=== PATIENT | male | born 1980 | race Asian ===

== ENCOUNTER 2021-11-22 06:30 | Day surgery (SDC) | payer OTHER ==
[~2021-11-22] VITALS: Ht 167.6 cm; Wt 73.5 kg
[2021-11-22] MEDS ORDERED: CEFAZOLIN SOD 2 GM in D5W 50 ML IV ONE (07:15)
[2021-11-22] MEDS ORDERED: OXYMETAZOLINE HCL 0.05% NASAL SPRAY NS ONE (09:27)
[2021-11-22] MEDS ORDERED: ONDANSETRON HCL 4 MG/2 ML VIAL ONE (09:27)
[2021-11-22] MEDS ORDERED: PROPOFOL 200MG/ 20ML VIAL (DIPRIVAN) IV ONE (09:27)
[2021-11-22] MEDS ORDERED: LIDOCAINE/EPI 1% 1:100000 20 ML VIAL INJ ONE (09:27)
[2021-11-22] MEDS ORDERED: NS IRRIG SOLN 1000 ML IR ONE (09:27)
[2021-11-22] MEDS ORDERED: MIDAZOLAM HCL 2 MG/2 ML VIAL (VERSED) ONE (09:27)
[2021-11-22] MEDS ORDERED: BACITRACIN ZINC 15 GM TOPICAL OINTMENT TP ONE (09:27)
[2021-11-22] MEDS ORDERED: ROCURONIUM BROMIDE 10 MG/ML (ZEMURON) ONE (09:27)
[2021-11-22] MEDS ORDERED: SEVOFLURANE 15 MIN GAS INH ONE (09:27)
[2021-11-22] MEDS ORDERED: SUCCINYLCHOLINE CHLORIDE 20 MG/ML(QUELICIN) ONE (09:27)
[2021-11-22] MEDS ORDERED: LR 1,000 ML IV.SOLN IV ONE (09:27)
[2021-11-22] MEDS ORDERED: fentaNYL CITRATE 250 MCG/5 ML AMP ONE (09:27)
[2021-11-22] MEDS ORDERED: HYDROmorphone 1 MG/ML INJ. CARTRIDGE IVP PRN (10:15)
[2021-11-22] MEDS ORDERED: KETOROLAC TROMETHAMINE 30 MG VIAL IVP PRN (10:15)
[2021-11-22] MEDS ORDERED: ONDANSETRON HCL 4 MG/2 ML VIAL IVP PRN ×2 (10:15→12:00)
[2021-11-22] MEDS ORDERED: HYDROcodone/ACETAMIN 5-325 MG TAB (NORCO/ VICODIN) PO PRN (12:00)
[2021-11-22] MEDS ORDERED: ONDANSETRON 4 MG ODT TAB PO PRN (12:00)
[2021-11-22 15:44] VITALS: BP_SYST 132
== END 2021-11-22 14:10 | disposition home or self-care (01) ==
LOC: SDS 06:30 → SMU 06:31 → SDS 14:10
PROVIDERS: ATTEND Otolaryngology
DX: J34.2 Deviated nasal septum (principal); J34.3 Hypertrophy of nasal turbinates; J31.0 Chronic rhinitis; Z20.822 Contact with and (suspected) exposure to COVID-19; Z79.899 Other long term (current) drug therapy
CPT/HCPCS: 30140; 30520; 36415; 87426; J0330; J0690; J2405; J2704; J3010; J3465; J7060; J7120; U0003